=== PATIENT | male | born 1980 | race Caucasian/White ===

== ENCOUNTER 2016-08-20 09:51 | Emergency (ER) | payer OTHER ==
[2016-08-20] MEDS ORDERED: CETIRIZINE 10 MG TABLET PO STA (12:00)
[2016-08-20] MEDS ORDERED: CETIRIZINE 10 MG TABLET ONE (12:05)
== END 2016-08-20 12:15 | disposition home or self-care (01) ==
DX: L50.9 Urticaria, unspecified (principal); R03.0 Elevated blood-pressure reading, without diagnosis of hypertension
CPT/HCPCS: 99283; A9270

== ENCOUNTER 2017-06-09 10:47 | Day surgery (SDC) | payer BC ==
[2017-06-09] MEDS ORDERED: LIDOCAINE-MPF 2% 5 ML VIAL IM ONE (10:48)
[2017-06-09] MEDS ORDERED: PROPOFOL 200 MG/20 ML VIAL IVP ONE (10:48)
[2017-06-09] MEDS ORDERED: ceFAZolin 2 GM/50 ML 2 GM/50 ML BAG IV ONE (10:54)
[2017-06-09] MEDS ORDERED: LACTATED RINGERS 1,000 ML IV ONE ×2 (11:30→14:34)
--- NOTE | 2017-06-09 13:45 | SURGERY HX AND PHYSICAL(T) ---
Surgical History & Physical - PMH/PSH/Social Hx Does the pt have a hx of MRSA?: No Neurological History: Cerebral palsy, Seizure disorder Eyes, Ears, Nose, Throat: Chronic sinusitis Cardiovascular: None Respiratory: None Skin: None Endocrine/Autoimmune: None Gastrointestinal: Other Urinary: None Musculoskeletal: None Psychiatric: Anxiety, Panic attacks General: Appendectomy, Bowel surgery, Other Smoking Status: Never smoker Does the pt drink ETOH?: Yes Frequency: Occasional Does the pt have substance abuse?: No - Home Meds and Allergies Home Medications: Baclofen 10 mg PO TID 09/30/12 lamoTRIgine [Lamictal] 150 mg PO QID 10/27/14 Ashwagandha Root Extract [Ashwagandha Extract] 1 packet PO BID 01/16/15 Cholecalciferol [Vitamin D3] 5,000 unit PO DAILY 02/27/17 ALPRAZolam [Alprazolam] 0.5 mg PO DAILY PRN 05/21/17 Cod Liver Oil 1 each PO DAILY 05/21/17 Fluticasone [Flonase] 1 sprays EDWARD BID PRN 05/21/17 Holy Basil 800 mg PO DAILY 05/21/17 L. Acidophilus/L. Rhamnosus [Probiotic 15 Billion Cell Cap] 1 each PO QPM L. Acidophilus/L.bulgaricus [Gabriela Assist Powder] 1 each PO DAILY 05/21/17 Allergies/Adverse Reactions: Allergies Allergy/AdvReac Type Severity Reaction Status Date / Time morphine Allergy Mild Itching Verified 05/21/17 10:12 nafcillin Allergy Mild Rash Verified 05/21/17 10:12 codeine Allergy Unknown Verified 05/21/17 10:12 - Vital Signs Temperature: 36.8 C Respiratory Rate: 16 O2 Saturation: 100 Weight (kg): 68.1 kg Height: 1.83 m - Patient Review Patient Review: Problems were reviewed with the patient during this visit. Medications were reviewed with the patient during this visit. Allergies were reviewed this patient during this visit. Pertinent Tests Reviewed: All pertitent test for this patient were reviewed. - Assessment & Plan Assessment and Plan: Dr. Isma Galo initially sent this simply delightful 37-year-old cerebral palsy patient to my office with a nonfunctional Port-A-Cath who no longer needs a Port-A-Cath back in May 06, 2017. Because more than 30 days were allowed to elapse after that encounter this update H&P is mandated. His mother and caregiver were and are both present. At that time, I was able to speak with Froy and it is clear that meatloaf is his favorite food along with his grandfather's spaghetti. He is a bit nervous about hitting me with his spastic motions when I take out the Port-A-Cath. I explained that this would not be an issue since I would do in the operating room with anesthesia. He said good because he is also anxious about the removal. I can actually make out most of what he says. Today there are no substantive changes to his history and physical. There are no new allergies. There are no new medications. No medications have been stopped. There are no new diagnoses. He has not been hospitalized. Current Allergies: CODEINE (Critical) MORPHINE (Critical) Current Medications: ZYRTEC ALLERGY 10 MG ORAL TABLET (CETIRIZINE HCL) Take one tablet by mouth daily FLUTICASONE PROPIONATE 50 MCG/ACT NASAL SUSPENSION (FLUTICASONE PROPIONATE) Use one spray each nostril twice daily ALPRAZOLAM 0.5 MG ORAL TABLET (ALPRAZOLAM) Take one tablet by mouth daily as needed for anxiety BACLOFEN 10 MG ORAL TABLET (BACLOFEN) Take one tablet by mouth three times daily LAMICTAL 150 MG ORAL TABLET (LAMOTRIGINE) Take one tablet by mouth twice daily. Past Medical History: Anxiety disorder (ICD-300.00) (NXH55-E85.9) Seizure disorder (ICD-780.39) (TBK35-V02.9) Cerebral palsy (ICD-343.9) (OPM72-C07.9) Eustachian tube dysfunction (ICD-381.81) (SEP22-L67.80) Allergic rhinitis (ICD-477.9) (NYN13-Y90.9) Past Surgical History: T&A school age [employer] in his teens Dr. Baron bowel obstruction g tube g tube removal 2015 Family History Summary: Mother (biol.) - Has a mother who is alive and well - Entered On: 07/23/2016 Mother (biol.) - Has Family History of Other Medical Problems - Alcoholism - Entered On: 05/06/2017 Father (biol.) - Has Family History of Other Medical Problems - Unknown - Entered On: 05/06/2017 Risk Factors: Smoked Tobacco Use: Never smoker Drug use: no Alcohol use: yes Type: wine Drinks per day: occasionally Exercise: no Review of Systems I did not do review of systems today and I did not do one on May 06, 2017. An extensive ROS is truly meaningless in anticipation of what I am being asked to do. The patient does not have trouble with bleeding. Physical Exam General: 37-year old male, appears slightly younger than stated age, well nourished with cerebral palsy and spastic motion evaluated in bed 4 at [facility] HEENT: Normocephalic, atraumatic, extraocular movement intact, mucous membranes pink and moist, sclera anicteric and not injected Neck: Supple without pain on palpation, mass or bruit Cardiac: Regular rate and rhythm without rub, gallop, or murmur Chest: Clear to auscultation bilaterally, Port in good position on the right chest without erythema or ecchymosis Abdomen: Benign Genitourinary: Deferred Rectal: Deferred Extremities: No clubbing, cyanosis or edema. Spastic motion consistent with CP. Gait: Evaluated on a stretcher, spastic motions Psychiatric: Alert and oriented to person place and time, asks and answers questions appropriately, mood and affect appropriate, speech is a bit difficult to understand but I can make out most of what he is saying Assessment and Plan: Portacath removal. Indications, procedure, and risks including but not limited to infection, bleeding (requiring transfusion with all of its risks), and were fully explained to the patient, his mother and caregiver. He does not require a Portacath or venous access at this point in time. The patient's inability to hold still precludes doing this in the office. Additiionally, it will help with his anxiety. All questions were fully answered. Verbal and written consent was obtained. The patient in preparation for his surgery will be nothing by mouth, receive a soap and water shower, and receive 2 g of Ancef with induction. I asked all of them to contact me with any surgical questions and concerns and they stated that they would contact me. I asked the patient let me know if there is any way we can make his stay at [facility] more comfortable and he stated that he would let me know. 20 minutes of [id number] time was spent with the patient, his mother and customer care specialist with over 80% of it in discussion and generating this paperwork
[2017-06-09] MEDS ORDERED: BUPIVACAINE 0.5% PF 30 ML VIAL INFIL ONE ×2 (14:24→14:37)
--- NOTE | 2017-06-09 15:19 | OPERATIVE REPORT ---
Operative Report - General Procedure Date: 06/09/17 Planned Procedure: Port-A-Cath removal Pre-Op Diagnosis: Port-A-Cath Procedure Performed: Port-A-Cath removal Post Op Diagnosis: Port-A-Cath - Procedure Note Primary Surgeon: Yadiel Salmeron MD Anesthesia Provider: Adry Harkins Anesthesia Technique: Local (30 mL of half percent Marcaine), MAC IV Fluids (mL): 300 Estimated Blood Loss (mL): 1 Complications: None. - Other Other Information/Narrative: OPERATIVE DESCRIPTION/REPORT: After verbal and written informed consent was obtained detailing the risks of infection, bleeding requiring transfusion with its risks, nerve injury, and , and after I met with the patient confirming the surgery and the site of the surgery, the patient was brought to the operative suite and placed supine on the operating table. Great care was taken to avoid pressure points to prevent pressure necrosis or nerve injury. Monitoring devices were applied along with TEDs and pneumatic compressive stockings (to prevent DVT). The patient received preoperative antibiotics for surgical prophylaxis. Adry Harkins sedated the patient for the entire procedure. The patient was prepped and draped in the usual sterile manner. A "time in" then confirmed that the paitient was identified with 3 identifiers (name, date and medical record number), the history and physical was in the chart, the signed consent confirming the procedure was in the chart, the patient was in the correct position, the aforementioned prophylactic measures were in place or given, we had the correct personnel and equipment to complete the procedure and that anesthesia, surgery and nursing were given an opportunity to express any concerns. With the agreement of everyone in the room, we proceeded with the operation. With the patient adequately sedated, the subclavian region was anesthetized using % marcaine. I cut down to the port tracing the previous incision, excised the sutures holding it in place, opened the cavity holding the port in place and removed it while holding pressure at the junction of the subclavian vein and the clavicle. After 5 minutes I released the pressure. Meticulous hemostasis was obtained with Bovie electrocautery. The subcutaneous tissues were approximated with a simple 3-0 Vicryl suture, and the skin incision was approximated with a running 4-0 subcuticular Monocryl. The skin prep was washed off, Dermabond and a dressing was placed on the wound. All surgical counts were reported as correct. Having tolerated the procedure well, the patient was taken to recovery room in good and stable condition.
[2017-06-09 15:28] VITALS: BP 132/87
== END 2017-06-09 10:48 | disposition home or self-care (01) ==
LOC: SDS 10:47
PROVIDERS: ATTEND Surgery
PROC: 0JPT0WZ Removal of Totally Implantable Vascular Access Device from Trunk Subcutaneous Tissue and Fascia, Open Approach (ICD-10-PCS; principal; 2017-06-09 12:00)
DX: Z45.2 Encounter for adjustment and management of vascular access device (principal); G80.9 Cerebral palsy, unspecified; G40.909 Epilepsy, unspecified, not intractable, without status epilepticus
CPT/HCPCS: 36590; J0690; J7120

== ENCOUNTER 2018-06-05 14:51 | Emergency (ER) | payer BC ==
[2018-06-05 14:58] VITALS: BP 139/86
--- NOTE | 2018-06-05 15:53 | ED Physician Documentation ---
PD HPI URI - Stated complaint Stated Complaint: COLD SX - Chief complaint Chief Complaint: Resp - History obtained from History obtained from: Patient, Family (mom) - History of Present Illness Timing - onset: Other (4 days of illness with sinus pressure and drainage as well as an inflamed face nonproductive cough. No fevers.) Review of Systems Constitutional: denies: Fever, Chills Ears: denies: Ear pain Nose: reports: Rhinorrhea / runny nose, Congestion, Sinus pressure / pain Throat: denies: Sore throat Respiratory: reports: Cough. denies: Dyspnea GI: denies: Abdominal Pain PD PAST MEDICAL HISTORY - Past Medical History Cardiovascular: None Respiratory: None Endocrine/Autoimmune: None GI: Other : None HEENT: Chronic sinusitis Psych: Anxiety, Panic attacks Musculoskeletal: None Derm: None - Past Surgical History Past Surgical History: Yes General: Appendectomy, Bowel surgery, Other - Present Medications Home Medications: Ambulatory Orders Medication Instructions Recorded Confirmed Baclofen 10 mg PO TID 09/30/12 06/09/17 lamoTRIgine [Lamictal] 150 mg PO QID 10/27/14 06/09/17 Ashwagandha Root Extract 1 packet PO BID 01/16/15 06/09/17 [Ashwagandha Extract] Cetirizine [ZyrTEC] 10 mg PO DAILY PRN #10 tablet 08/20/16 06/09/17 Cholecalciferol [Vitamin D3] 5,000 unit PO DAILY 02/27/17 06/09/17 ALPRAZolam [Alprazolam] 0.5 mg PO DAILY PRN 05/21/17 05/21/17 Cod Liver Oil 1 each PO DAILY 05/21/17 05/21/17 Holy Basil 800 mg PO DAILY 05/21/17 L. Acidophilus/L. Rhamnosus 1 each PO QPM 05/21/17 05/21/17 [Probiotic 15 Billion Cell Cap] L. Acidophilus/L.bulgaricus [Gabriela 1 each PO DAILY 05/21/17 06/09/17 Assist Powder] Amox/Clav 875/125 [Augmentin] 1 each PO Q12H #20 tablet 06/05/18 Baclofen 06/05/18 06/05/18 Mometasone Furoate [Nasonex] 1 spray NS BID #1 spray.pump 06/05/18 - Allergies Allergies/Adverse Reactions: Allergies Allergy/AdvReac Type Severity Reaction Status Date / Time morphine Allergy Mild Itching Verified 05/21/17 10:12 nafcillin Allergy Mild Rash Verified 05/21/17 10:12 codeine Allergy Unknown Verified 06/05/18 14:58 - Social History Does the pt smoke?: No Smoking Status: Never smoker Does the pt drink ETOH?: Yes Does the pt have substance abuse?: No - Immunizations Immunizations are current?: Yes - POLST Patient has POLST: Yes PD ED PE NORMAL - Vitals Vital signs reviewed: Yes - General General: Alert and oriented X 3, No acute distress - HEENT HEENT: Other (TTP B max sinuses) - Neck Neck: Supple, no meningeal sign, No bony TTP - Cardiac Cardiac: RRR, No murmur - Respiratory Respiratory: No respiratory distress, Clear bilaterally Results - Vitals Vitals: Vital Signs - 24 hr 06/05/18 14:54 Temperature 36.4 C L Heart Rate 85 Respiratory 20 Rate Blood Pressure 139/86 H O2 Saturation 98 Oxygen O2 Source Room air Departure - Departure Disposition: 01 Home, Self Care Clinical Impression: Sinusitis Qualifiers: Sinusitis location: maxillary Chronicity: acute Recurrence: recurrent Qualified Code(s): J01.01 - Acute recurrent maxillary sinusitis Condition: Good Record reviewed to determine appropriate education?: Yes Instructions: ED Sinusitis Abx Tx Prescriptions: Amox/Clav 875/125 [Augmentin] 1 each PO Q12H #20 tablet Mometasone Furoate [Nasonex] 1 spray NS BID #1 spray.pump Comments: Recheck with your doctor in 1 week if not better. Your blood pressure was elevated today on check into the emergency department. This does not mean that you have hypertension, it is a common phenomenon to come to the emergency department and have elevated blood pressure. I recommend that you see your primary care physician within the week to have it rechecked when you are feeling better.
== END 2018-06-05 16:03 | disposition home or self-care (01) ==
LOC: ED 14:51
DX: J01.01 Acute recurrent maxillary sinusitis (principal); R03.0 Elevated blood-pressure reading, without diagnosis of hypertension
CPT/HCPCS: 99283

== ENCOUNTER 2020-10-03 08:00 | Outpatient (CLI) | payer BC, OTHER ==
[2020-10-03 18:04] LABS: EOSINOPHILS # (AUTO) 0.1 10^3/uL (0.0-0.7); EOSINOPHILS % (AUTO) 2.1 %; HCT - HEMATOCRIT 47.7 % (42.0-52.0); HGB - HEMOGLOBIN 15.9 g/dL (14.0-18.0); LYMPHOCYTES # (AUTO) 0.8 10^3/uL (1.5-3.5); LYMPHOCYTES % (AUTO) 13.9 %; MEAN CORPUSCULAR HEMOGLOBIN 30.5 pg (27.0-31.0); MEAN CORPUSCULAR HGB CONC 33.3 g/dL (32.0-36.0); MEAN CORPUSCULAR VOLUME 91.4 fL (80.0-94.0); MEAN PLATELET VOLUME 9.7 fL (7.4-11.4); MONOCYTES # (AUTO) 0.3 10^3/uL (0.0-1.0); MONOCYTES % (AUTO) 5.1 %; NEUTROPHILS # (AUTO) 4.5 10^3/uL (1.5-6.6); NEUTROPHILS % (AUTO) 78.6 %; PLT - PLATELET COUNT 246 10^3/uL (130-450); RED BLOOD COUNT 5.22 10^6/uL (4.70-6.10); RED CELL DISTRIBUTION WIDTH 13.3 % (12.0-15.0); WHITE BLOOD COUNT 5.7 x10^3/uL (4.8-10.8)
[2020-10-03 18:10] LABS: SLIDE REVIEW? Indicated
[2020-10-03 18:29] LABS: PLATELET ESTIMATE, MANUAL NORMAL (130-450,000) (NORMAL); PLATELET MORPHOLOGY NORMAL APPEARANCE (NORMAL); RBC MORPHOLOGY (MULTIPLE) NORMAL APPEARANCE (NORMAL); WBC MORPHOLOGY (MULTIPLE) NORMAL APPEARANCE (NORMAL)
[2020-10-03 18:56] LABS: THYROID STIMULATING HORMONE 1.11 uIU/mL (0.34-5.60)
[2020-10-03 19:08] LABS: ALBUMIN 4.9 g/dL (3.2-5.5); ALKALINE PHOSPHATASE 65 IU/L (42-121); ALT ALANINE AMINOTRANSFERASE 21 IU/L (10-60); AST ASPARTATE AMINOTRANSFERASE 22 IU/L (10-42); BUN - BLOOD UREA NITROGEN 12 mg/dL (6-20); CALCIUM 9.6 mg/dL (8.5-10.3); CARBON DIOXIDE - CO2 28 mmol/L (21-32); CHLORIDE 102 mmol/L (101-111); CHOL/HDL RATIO 4.6 (<5.0); CHOLESTEROL 241 mg/dL; CREATININE 0.8 mg/dL (0.6-1.2); GFR - MDRD 107 (>89); GLUCOSE 104 mg/dL (70-100); HDL CHOLESTEROL 52 mg/dL; LDL CHOLESTEROL,CALCULATED 177 mg/dL; LDL/HDL RATIO 3.4 (<3.6); POTASSIUM 4.3 mmol/L (3.5-5.0); SODIUM 138 mmol/L (135-145); TOTAL PROTEIN 7.3 g/dL (6.7-8.2); TRIGLYCERIDES 61 mg/dL; VLDL CHOLESTEROL 12 mg/dL
== END 2020-10-03 08:01 | disposition home or self-care (01) ==
LOC: LAB.WCP 08:00
PROVIDERS: ATTEND Physician Assistant Medical
DX: Z00.00 Encounter for general adult medical examination without abnormal findings (principal); G40.909 Epilepsy, unspecified, not intractable, without status epilepticus
CPT/HCPCS: 36415; 80053; 80061; 80175; 83721; 84443; 85025

== ENCOUNTER 2021-04-16 08:29 | Outpatient (CLI) | payer OTHER ==
[2021-04-16 13:01] LABS: CHOLESTEROL 198 mg/dL; HDL CHOLESTEROL 66 mg/dL; LDL CHOLESTEROL,CALCULATED 124 mg/dL; LDL/HDL RATIO 1.9 (<3.6); TRIGLYCERIDES 41 mg/dL; VLDL CHOLESTEROL 8 mg/dL
== END 2021-04-16 23:59 | disposition home or self-care (01) ==
LOC: LAB.WCP 08:29
PROVIDERS: ATTEND Physician Assistant Medical
DX: E78.5 Hyperlipidemia, unspecified (principal)
CPT/HCPCS: 36415; 80061; 83721

== ENCOUNTER 2022-04-23 08:14 | Outpatient (CLI) | payer OTHER ==
[2022-04-23 12:40] LABS: BASOPHILS % (AUTO) 0.2 %; HCT - HEMATOCRIT 43.8 % (42.0-52.0); LYMPHOCYTES # (AUTO) 1.4 10^3/uL (1.5-3.5); LYMPHOCYTES % (AUTO) 28.1 %; MEAN CORPUSCULAR HEMOGLOBIN 30.5 pg (27.0-31.0); MEAN CORPUSCULAR HGB CONC 34.2 g/dL (32.0-36.0); MEAN CORPUSCULAR VOLUME 89.2 fL (80.0-94.0); MEAN PLATELET VOLUME 9.7 fL (7.4-11.4); MONOCYTES # (AUTO) 0.5 10^3/uL (0.0-1.0); MONOCYTES % (AUTO) 9.3 %; NEUTROPHILS # (AUTO) 3.1 10^3/uL (1.5-6.6); NEUTROPHILS % (AUTO) 62.2 %; PLT - PLATELET COUNT 221 10^3/uL (130-450); RED BLOOD COUNT 4.91 10^6/uL (4.70-6.10); RED CELL DISTRIBUTION WIDTH 13.2 % (12.0-15.0); WHITE BLOOD COUNT 4.9 x10^3/uL (4.8-10.8)
[2022-04-23 12:48] LABS: THYROID STIMULATING HORMONE 2.39 uIU/mL (0.34-5.60)
[2022-04-23 12:54] LABS: ALBUMIN 4.4 g/dL (3.2-5.5); ALBUMIN/GLOBULIN RATIO 1.7 (1.0-2.2); ALKALINE PHOSPHATASE 81 IU/L (42-121); ALT ALANINE AMINOTRANSFERASE 22 IU/L (10-60); AST ASPARTATE AMINOTRANSFERASE 21 IU/L (10-42); BILIRUBIN,TOTAL 0.7 mg/dL (0.2-1.0); BUN - BLOOD UREA NITROGEN 12 mg/dL (6-20); CALCIUM 9.3 mg/dL (8.5-10.3); CARBON DIOXIDE - CO2 29 mmol/L (21-32); CHLORIDE 102 mmol/L (101-111); CHOL/HDL RATIO 3.1 (<5.0); CHOLESTEROL 162 mg/dL; CREATININE 0.8 mg/dL (0.6-1.2); GFR - MDRD 106 (>89); GLUCOSE 90 mg/dL (70-100); HDL CHOLESTEROL 53 mg/dL; LDL CHOLESTEROL,CALCULATED 100 mg/dL; LDL/HDL RATIO 1.9 (<3.6); POTASSIUM 3.9 mmol/L (3.5-5.0); SODIUM 140 mmol/L (135-145); TRIGLYCERIDES 44 mg/dL; VLDL CHOLESTEROL 9 mg/dL
== END 2022-04-23 08:15 | disposition home or self-care (01) ==
LOC: LAB.N 08:14
PROVIDERS: ATTEND Physician Assistant Medical
DX: Z00.00 Encounter for general adult medical examination without abnormal findings (principal); E78.5 Hyperlipidemia, unspecified
CPT/HCPCS: 36415; 80053; 80061; 83721; 84443; 85025

== ENCOUNTER 2023-03-10 10:43 | Emergency (ER) | payer OTHER ==
[2023-03-10 11:08] VITALS: O2SAT 100
--- NOTE | 2023-03-10 15:07 | ED Physician Documentation ---
History of Present Illness - Stated complaint Stated Complaint: GI - Chief complaint Chief Complaint: General - History obtained from History obtained from: Patient, Family - Additonal information Additional information: 42-year-old gentleman with history of CP presents with mom and caregiver. He has had 4 days of a nonpainful hemorrhoid that seems to be getting better. He tried to follow-up in the office for evaluation but were referred to the emergency department. He also has a months worth of slowly improving cough and wonder if albuterol might be helpful. PD PAST MEDICAL HISTORY - Past Medical History Past Medical History: Yes Cardiovascular: High cholesterol Respiratory: None Neuro: Cerebral palsy Endocrine/Autoimmune: None GI: Hemorrhoids, Other : None HEENT: Chronic sinusitis Psych: Anxiety, Panic attacks Musculoskeletal: None Derm: None - Past Surgical History Past Surgical History: Yes General: Appendectomy, Bowel surgery, Other - Present Medications Home Medications: Ambulatory Orders Medication Instructions Recorded Confirmed Baclofen 10 mg PO TID 09/30/12 03/10/23 lamoTRIgine [Lamictal] 150 mg PO BID 10/27/14 03/10/23 Ashwagandha Root Extract 1 packet PO BID 01/16/15 03/10/23 [Ashwagandha Extract] ALPRAZolam [Alprazolam] 0.25 mg PO DAILY PRN 05/21/17 03/10/23 Albuterol Sulf [Ventolin Hfa 1 - 2 puffs INH Q4HR PRN #1 each 03/10/23 Inhaler] - Allergies Allergies/Adverse Reactions: Allergies Allergy/AdvReac Type Severity Reaction Status Date / Time morphine Allergy Mild Itching Verified 05/21/17 10:12 nafcillin Allergy Mild Rash Verified 05/21/17 10:12 codeine Allergy Unknown Verified 06/05/18 14:58 - Social History Does the pt smoke?: No Smoking Status: Never smoker Does the pt drink ETOH?: Yes Does the pt have substance abuse?: No - Immunizations Immunizations are current?: Yes - POLST Patient has POLST: Yes PD ED PE NORMAL - Vitals Vital signs reviewed: Yes - General General: Other (Cooperative, most of the history from the parents though. He is in a good mood though.) - Respiratory Respiratory: No respiratory distress, Clear bilaterally - Abdomen Abdomen: Non tender - Rectal Rectal: Other (Small right-sided thrombosed hemorrhoid) Results - Vitals Vitals: Vital Signs - 24 hr 03/10/23 11:01 Temperature 36.1 C L Heart Rate 65 Respiratory 18 Rate Blood Pressure 117/72 O2 Saturation 100 Oxygen O2 Source Room air PD Medical Decision Making - ED course ED course: 42-year-old gentleman with small thrombosed nonpainful hemorrhoid, conservative care advised. He would also like albuterol for ongoing improving cough. Departure - Departure Disposition: Home, Self Care Clinical Impression: Thrombosed external hemorrhoid Condition: Good Record reviewed to determine appropriate education?: Yes Instructions: ED Hemorrhoids Prescriptions: Albuterol Sulf [Ventolin Hfa Inhaler] 1 - 2 puffs INH Q4HR PRN #1 each PRN Reason: Shortness Of Air/Wheezing Comments: Continue caring for the hemorrhoids as you have been, you are doing an excellent job. Return if worse. Forms: PCP List
[2023-03-10 15:24] VITALS: BP 114/74
== END 2023-03-10 15:18 | disposition home or self-care (01) ==
LOC: ED 10:43
DX: K64.4 Residual hemorrhoidal skin tags (principal); R05.9 Cough, unspecified
CPT/HCPCS: 99282; 99283